=== PATIENT | female | born 1985 | race African-American/Black ===

== ENCOUNTER 2024-01-25 17:40 | Emergency (ER) | payer MEDICAID ==
[~2024-01-25] VITALS: Ht 172.7 cm; Wt 82.0 kg
[2024-01-25 17:49] VITALS: BP 145/83; PULSE 93; RESP 15; TEMP 98.6; O2SAT 99
[2024-01-25 18:22] LABS: CHLORIDE 107 mEq/L (98-107); POTASSIUM 3.3 mEq/L (3.5-5.1); SODIUM 141 mEq/L (136-145)
[2024-01-25 18:23] LABS: CARBON DIOXIDE 24 mEq/L (21-32)
[2024-01-25 18:24] LABS: CALCIUM 9.6 mg/dL (8.7-10.4)
[2024-01-25 18:29] LABS: CREATININE 0.8 mg/dL (0.6-1.0); GLUCOSE 84 mg/dL (70-105); UREA NITROGEN BLOOD 12 mg/dL (9-23)
[2024-01-25 18:34] LABS: DIFFERENTIAL COMMENT 0; EOSINOPHILS % 1.3 % (0.0-5.0); HEMATOCRIT. 34.5 % (36.0-48.0); HEMOGLOBIN. 11.7 g/dL (12.0-16.0); MEAN CORPUSCULAR HGB CONC 33.9 g/dL (31.0-37.0); MEAN CORPUSCULAR VOLUME 103.4 fL (81.0-99.0); MEAN PLATELET VOLUME 7.1 fl (7.4-10.4); MONOCYTES % 5.1 % (2.0-8.0); NEUTROPHILS % 60.6 % (40.0-76.0); PLATELET 504 x1000/uL (130-400); RED BLOOD CELL COUNT 3.34 mill/uL (4.2-5.4); RED CELL DISTRIBUTION WIDTH 13.2 % (11.6-14.6); WHITE BLOOD COUNT 9.7 x1000/uL (4.5-11.0)
== END 2024-01-25 20:12 | disposition left against medical advice (07) ==
LOC: ER 17:40
DX: K04.7 Periapical abscess without sinus (principal); Z53.21 Procedure and treatment not carried out due to patient leaving prior to being seen by health care provider
CPT/HCPCS: 36415; 80048; 83605; 85025